=== PATIENT | female | born 1980 | race Caucasian/White ===

== ENCOUNTER 2020-01-03 23:14 | Emergency (ER) | payer BC ==
[~2020-01-03] VITALS: Ht 177.8 cm; Wt 77.3 kg
[~2020-01-03 23:14] MED LIST: AMOXICILLIN 8751 TAB PO; AUGMENTIN 875 M1 TAB PO; LEUPROLIDE; LEVSIN0.125 M1 PO; LOESTRIN 24 FE1 TAB PO; LORTAB 5/500 501 TA1 PO; LORTAB 5/500 501 TAB PO; NAPROSYN500 MG PO; NO HOME MEDICATIONS; NORCO 325 MG-51 TAB PO; NORETHINDRONE AC5 MG PO; PHENERGAN 25 TA25 MG PO; PRENATAL1 TA1 PO; PROTONIX40 MG PO; THERAPEUTIC VIT1 CAP PO; TYLENOL W/COD1 UDTAB PO; ULTRAM 50MG TAB50 MG PO; VICODIN 5/5001 UDTAB PO; ZOFRAN 4MG T4 MG/TAB PO; [UNRECOGNIZED DRUG - OTHER]
[2020-01-03 23:59] LABS: BASO % 0.6 % (0.0-2.0); EOS # 0.1 (0.0-0.7); EOS % 1.2 % (0-4.0); GRAN # 2.4 (1.4-6.5); GRAN % 49.2 % (42.2-75.2); HEMOGLOBIN 11.9 g/dl (12.5-16.0); LYMPH % 40.6 % (20.0-51.0); MEAN CELL VOLUME 90 fl (80.0-100.0); MEAN CORPUSCULAR HEMOGLOBIN 30 pg (27.0-31.0); MEAN CORPUSCULAR HGB CONC 34 g/dl (33.0-37.0); MEAN PLATELET VOLUME 9.8 fl (7.4-10.4); MONO # 0.4 (0.1-0.6); MONO % 8.2 % (1.7-9.3); PLATELET COUNT 225 K/mm3 (130-400); RED BLOOD COUNT 3.91 M/mm3 (4.10-5.30); REDCELL DISTRIBUTION WIDTH-CV 12.2 % (11.5-14.5)
[2020-01-04 00:11] LABS: ALBUMIN 4.3 gm/dL (3.5-5.0); BILIRUBIN,TOTAL 0.3 mg/dL (0.0-1.0); CALCIUM 8.9 mg/dL (8.4-10.2); CREATININE, serum 0.94 (0.52-1.25); POTASSIUM 3.6 mmol/L (3.4-5.0); TOTAL PROTEIN 7.2 gm/dL (6.4-8.2)
[2020-01-04 00:41] LABS: TSH w REFLEX 1.81 uIU/mL (0.465-4.680)
[2020-01-04 01:37] VITALS: TEMP 97.9
[2020-01-04 01:59] VITALS: BP 125/69; PULSE 70
== END 2020-01-04 02:15 | disposition home or self-care (01) ==
LOC: COL.ER 23:14
PROVIDERS: Emergency Medicine
DX: T43.225A Adverse effect of selective serotonin reuptake inhibitors, initial encounter (principal); F10.129 Alcohol abuse with intoxication, unspecified; F32.9 Major depressive disorder, single episode, unspecified; F41.9 Anxiety disorder, unspecified; Z90.710 Acquired absence of both cervix and uterus; Z90.5 Acquired absence of kidney

== ENCOUNTER → 2020-05-19 | Outpatient (CLI) | payer BC | LOC: COL.RAD 09:52 | DX: M79.89 Other specified soft tissue disorders (principal) ==

== ENCOUNTER → 2020-06-13 | Outpatient (CLI) | payer BC | LOC: MC.RAD 13:45 | DX: Z12.31 Encounter for screening mammogram for malignant neoplasm of breast (principal) ==

== ENCOUNTER 2020-06-20 02:45 | Emergency (ER) | payer BC ==
[~2020-06-20] VITALS: Ht 177.8 cm; Wt 77.3 kg
[2020-06-20 03:00] VITALS: TEMP 97.8
[2020-06-20] MEDS ORDERED: MOTRIN 800800 MG/TAB PO (03:28)
[2020-06-20] MEDS ORDERED: TYLENOL W/COD1 UDTAB PO (03:28)
[2020-06-20] MEDS ORDERED: ZANAFLEX 4MG TAB4 MG PO (03:28)
[2020-06-20 03:34] VITALS: BP 124/76; PULSE 79
== END 2020-06-20 03:34 | disposition home or self-care (01) ==
LOC: COL.ER 02:45
DX: S56.911A Strain of unspecified muscles, fascia and tendons at forearm level, right arm, initial encounter (principal); X58.XXXA Exposure to other specified factors, initial encounter; Y93.B9 Activity, other involving muscle strengthening exercises; Y92.39 Other specified sports and athletic area as the place of occurrence of the external cause

== ENCOUNTER 2020-09-04 11:50 | Emergency (ER) | payer BC ==
[~2020-09-04] VITALS: Ht 177.8 cm; Wt 79.5 kg
[~2020-09-04 11:50] MED LIST changes: +MOTRIN 800800 MG/TAB PO; +ZANAFLEX 4MG TAB4 MG PO
[2020-09-04 12:01] VITALS: TEMP 97.9
[2020-09-04 14:23] VITALS: BP 131/82; PULSE 53
== END 2020-09-04 14:23 | disposition home or self-care (01) ==
LOC: COL.ER 11:50
DX: S62.647A Nondisplaced fracture of proximal phalanx of left little finger, initial encounter for closed fracture (principal); W54.1XXA Struck by dog, initial encounter

== ENCOUNTER 2020-11-03 08:00 | Outpatient (RCR) | payer BC | END 2020-12-20 | disposition home or self-care (01) | LOC: WSOT | DX: S62.647A Nondisplaced fracture of proximal phalanx of left little finger, initial encounter for closed fracture (principal) ==

== ENCOUNTER → 2021-07-17 | Outpatient (CLI) | payer BC | LOC: MC.RAD 14:05 | DX: Z12.31 Encounter for screening mammogram for malignant neoplasm of breast (principal) ==

== ENCOUNTER → 2022-09-26 | Outpatient (CLI) | payer BC | LOC: MC.RAD 07:05 | DX: Z12.31 Encounter for screening mammogram for malignant neoplasm of breast (principal); R92.0 Mammographic microcalcification found on diagnostic imaging of breast ==

== ENCOUNTER → 2023-10-01 | Outpatient (CLI) | payer BC | LOC: MC.RAD 07:41 | DX: Z12.31 Encounter for screening mammogram for malignant neoplasm of breast (principal) ==